=== PATIENT | male | born 1955 | race Caucasian/White ===

== ENCOUNTER 2022-07-02 06:30 | Day surgery (SDC) | payer MEDICARE ==
[2022-06-28 11:08] VITALS: BMI 42.5
[2022-07-02] MEDS ORDERED: Lidocaine 1% MPF 2 ML VIAL ONE ×2 (07:07→14:01)
[2022-07-02] MEDS ORDERED: Sodium Chloride 0.9% 100 ML ONE ×2 (07:07→09:12)
[2022-07-02] MEDS ORDERED: Tranexamic Acid 1,000 MG/10 ML VIAL ONE (07:07)
[2022-07-02] MEDS ORDERED: VANCOMYCIN 2 GRAM/500 ML BAG 2 GM in Premix Bag 1 BAG IVPB SCH (07:15)
[2022-07-02] MEDS ORDERED: Midazolam HCl 2 mg/2 ml Vial ONE ×2 (07:59→09:13)
[2022-07-02] MEDS ORDERED: Fentanyl 100 MCG/2 ML VIAL ONE (07:59)
[2022-07-02] MEDS ORDERED: Bupivacaine HCl 0.5%/Epinephrine 1:200,000/PF 30 ml Vial ONE (08:20)
[2022-07-02] MEDS ORDERED: Bupivacaine PF 0.5% 30 ML VIAL ONE (09:10)
[2022-07-02] MEDS ORDERED: CEFAZOLIN 2 GM VIAL ONE (09:12)
[2022-07-02] MEDS ORDERED: Phenylephrine 10 MG/ML VIAL ONE (09:13)
[2022-07-02] MEDS ORDERED: Propofol 1,000 MG/100 ML VIAL IV ONE (09:13)
[2022-07-02] MEDS ORDERED: fentaNYL Citrate/PF 100 MCG/2 ML SYRINGE ONE (09:13)
[2022-07-02] MEDS ORDERED: HYDROcodone/Acetaminophen 5/325 mg Tablet ONE ×2 (12:45→13:55)
[2022-07-02] MEDS ORDERED: HYDROcodone/Acetaminophen 10/325 mg Tablet ONE (13:56)
[2022-07-02] MEDS ORDERED: methylPREDNISolone Acetate 40 mg/ml Vial ONE (14:03)
[2022-07-02] MEDS ORDERED: Lidocaine 1% PF 5 ML VIAL ONE (14:11)
[2022-07-02] MEDS ORDERED: Ondansetron PF 4 MG/2 ML Vial ONE ×2 (15:26→15:28)
== END 2022-07-02 15:35 | disposition home or self-care (01) ==
LOC: SDC 06:30
PROVIDERS: ATTEND Orthopaedic Surgery
PROC: 0SRB04A Replacement of Left Hip Joint with Ceramic on Polyethylene Synthetic Substitute, Uncemented, Open Approach (ICD-10-PCS; principal; 2022-07-02)
PROC: 3E0T3BZ Introduction of Anesthetic Agent into Peripheral Nerves and Plexi, Percutaneous Approach (ICD-10-PCS; 2022-07-02)
DX: M16.12 Unilateral primary osteoarthritis, left hip (principal); I10 Essential (primary) hypertension; E78.5 Hyperlipidemia, unspecified; E11.9 Type 2 diabetes mellitus without complications; Z87.891 Personal history of nicotine dependence; Z79.84 Long term (current) use of oral hypoglycemic drugs; Z79.899 Other long term (current) drug therapy; Z96.651 Presence of right artificial knee joint
CPT/HCPCS: 27130; 64999; 82962; C1776; J3370; 36416; J0690; J2250; J2370; J2405; J2704; J2920; J3010; J3490; S0020

== ENCOUNTER 2022-07-09 09:31 | Outpatient (CLI) | payer MEDICARE | END 2022-07-09 09:32 | disposition home or self-care (01) | LOC: ULT 09:31 | PROVIDERS: ATTEND Orthopaedic Surgery | DX: M25.552 Pain in left hip (principal); M79.605 Pain in left leg ==

== ENCOUNTER 2022-10-16 10:07 | Outpatient (CLI) | payer MEDICARE ==
[2022-10-16 12:17] LABS: Bilirubin Neg (Negative); Blood, Urine Negative (Negative); Clarity Clear (Clear); Glucose, Urine (Dipstick) Normal (Negative); Ketone, Urine Negative (Negative); Leukocyte Negative (Negative); Nitrite Negative (Negative); Protein, Urine (Dipstick) Negative (Neg-Trace); Urobilinogen Normal mg/dL (Less than 2)
[2022-10-16 12:18] LABS: #Basophils 0.1 10x3/uL (0.0-0.2); #Eosinphils 0.7 10x3/uL (0.0-0.5); #Monocytes 0.6 10x3/uL (0.0-1.1); %Basophils 0.9 % (0.0-2.0); %Eosinophils 9.8 % (0.0-6.0); %Lymphocytes 28.3 % (18.0-47.0); %Monocytes 7.6 % (0.0-10.0); %Neutrophils 52.9 % (40.0-75.0); Hemoglobin 13.9 g/dL (13.5-17.5); Mean Corpuscular HGB CONC 33.5 g/dL (32.0-36.0); Mean Corpuscular Hemoglobin 31.4 pg (27.0-33.0); Mean Corpuscular Volume 93.7 fl (81.2-95.1); Mean Platelet Volume 10.1 fl (7.4-10.4); Platelet Count 259 10x3/uL (150-450); RBC Distribution Width 13.3 % (11.5-14.5); Red Blood Cell (RBC) Count 4.43 10x6/uL (4.32-5.72); White Blood Cell (WBC) Count 7.5 10x3/uL (3.5-10.5)
[2022-10-16 12:35] LABS: INR-International Normal Ratio 0.9; Prothrombin Time 10.2 sec (9.5-12.1)
[2022-10-16 12:45] LABS: Anion Gap 15 mmol/L (10-20); BUN (Urea Nitrogen) 24 mg/dL (8.4-25.7); Calc. Creatinine Clearance 0 mL/min (70-130); Calcium 9.5 mg/dL (7.8-10.44); Carbon Dioxide 23 mmol/L (23-31); Chloride 107 mmol/L (98-107); Estimated GFR 73; Glucose 117 mg/dL (80-115); Potassium 4.3 mmol/L (3.5-5.1); Sodium 141 mmol/L (136-145)
== END 2022-10-16 10:08 | disposition home or self-care (01) ==
LOC: LABBT 10:07
PROVIDERS: ATTEND Orthopaedic Surgery
DX: Z01.818 Encounter for other preprocedural examination (principal); M17.12 Unilateral primary osteoarthritis, left knee
CPT/HCPCS: 71046; 80048; 81003; 85025; 85610; 87081

== ENCOUNTER 2024-04-05 15:48 | Outpatient (CLI) | payer MEDICARE ==
[2024-04-05 17:30] LABS: #Basophils 0.09 10x3/uL (0.0-0.2); #Eosinphils 0.81 10x3/uL (0.0-0.5); #Monocytes 0.67 10x3/uL (0.0-1.1); #Neutrophils 4.46 10x3/uL (1.5-8.4); %Eosinophils 9.2 % (0.0-6.0); %Lymphocytes 30.9 % (18.0-47.0); %Monocytes 7.6 % (0.0-10.0); %Neutrophils 50.4 % (40.0-75.0); Hematocrit 43.3 % (38.8-50.0); Hemoglobin 14.4 g/dL (13.5-17.5); Mean Corpuscular HGB CONC 33.3 g/dL (32.0-36.0); Mean Corpuscular Hemoglobin 30.8 pg (27.0-33.0); Mean Corpuscular Volume 92.7 fl (81.2-95.1); Mean Platelet Volume 9.5 fl (7.4-10.4); Platelet Count 282 10x3/uL (150-450); RBC Distribution Width 12.8 % (11.5-14.5); Red Blood Cell (RBC) Count 4.67 10x6/uL (4.32-5.72); White Blood Cell (WBC) Count 8.8 10x3/uL (3.5-10.5)
[2024-04-05 17:31] LABS: Anion Gap 15 mmol/L (10-20); BUN (Urea Nitrogen) 27 mg/dL (8.4-25.7); Calc. Creatinine Clearance 0 mL/min (70-130); Calcium 10.3 mg/dL (7.8-10.44); Carbon Dioxide 23 mmol/L (23-31); Chloride 105 mmol/L (98-107); Estimated GFR 66; Glucose 118 mg/dL (83-110); Potassium 4.5 mmol/L (3.5-5.1); Sodium 138 mmol/L (136-145)
== END 2024-04-05 15:49 | disposition home or self-care (01) ==
LOC: LABBT 15:48
PROVIDERS: ATTEND Orthopaedic Surgery
DX: Z01.818 Encounter for other preprocedural examination (principal); G56.01 Carpal tunnel syndrome, right upper limb
CPT/HCPCS: 80048; 85025; 93005; 93010